=== PATIENT | male | born 1955 | race Asian ===

== ENCOUNTER 2018-06-12 19:52 | Emergency (ER) | payer OTHER, MEDICARE, MEDICAID ==
[~2018-06-12] VITALS: Ht 177.8 cm; Wt 65.9 kg
[~2018-06-12 19:52] MED LIST: BACI28.33 MM; DOCU-28 PO; FLO0.4C PO; HYDR-3973 PO
[2018-06-12] MEDS ORDERED: ketorolac trometh. 30mg/ml inj. IM ONE (20:50)
[2018-06-12 21:47] LABS: BASOPHILS % (AUTO) 0.3 % (0-1); EOSINOPHILS # (AUTO) 0.1 X10'3 (0-0.9); EOSINOPHILS % (AUTO) 0.8 % (0-6); HEMOGLOBIN 15.1 g/dl (14.0-17.9); LYMPHOCYTES # (AUTO) 1.4 X10'3 (1.1-4.8); LYMPHOCYTES % (AUTO) 19.4 % (21-51); MEAN CORPUSCULAR HEMOGLOBIN 29.9 PG (27.0-31.0); MEAN CORPUSCULAR HGB CONC 32.9 % (33.0-36.5); MEAN CORPUSCULAR VOLUME 90.8 FL (78-98); MEAN PLATELET VOLUME 7.6 FL (7.4-10.4); MONOCYTES # (AUTO) 0.4 X10'3 (0-0.9); NEUTROPHILS # (AUTO) 5.3 X10'3 (1.8-7.7); NEUTROPHILS % (AUTO) 73.5 % (42-75); PLATELET COUNT 235 X10'3 (140-440); RED BLOOD COUNT 5.07 X10'6 (4.70-6.10); RED CELL DISTRIBUTION WIDTH 13.5 % (11.5-14.5); WHITE BLOOD COUNT 7.2 X10'3 (4.5-11.0)
[2018-06-12 22:01] LABS: ALBUMIN 3.7 G/DL (3.4-5.0); ANION GAP 9 (8-16); BLOOD UREA NITROGEN 16 MG/DL (7-18); BUN/CREATININE RATIO 15.8 (5.4-32.0); CALCIUM 9.1 MG/DL (8.5-10.1); CHLORIDE 106 MMOL/L (99-107); CREATININE 1.01 MG/DL (0.60-1.10); GLUCOSE 102 MG/DL (70-104); SODIUM 141 MMOL/L (135-145); TOTAL CARBON DIOXIDE 26.5 MMOL/L (24-32); eGFR 75 ML/MIN
[2018-06-12] MEDS ORDERED: iohexol 300mg/ml 100ml inj. ONE (22:16)
[2018-06-12 23:55] VITALS: BP 100/62
== END 2018-06-12 23:57 | disposition home or self-care (01) ==
LOC: ER 19:53
DX: R07.89 Other chest pain (principal); G89.29 Other chronic pain; F17.200 Nicotine dependence, unspecified, uncomplicated; V89.2XXA Person injured in unspecified motor-vehicle accident, traffic, initial encounter; Y93.89 Activity, other specified; Y92.89 Other specified places as the place of occurrence of the external cause; Y99.8 Other external cause status
CPT/HCPCS: 36415; 71046; 71260; 80048; 85025; 96372; 99285; J1885; Q9967

== ENCOUNTER → 2021-01-28 | Emergency (ER) | payer MEDICARE, MEDICAID ==
[~2021-01-28] VITALS: Ht 172.7 cm; Wt 82.6 kg
[~2021-01-28] MED LIST changes: +ATOR40TA72 PO; -BACI28.33 MM; +CEPH-585 PO; +CLOP75TA34 PO; -DOCU-28 PO; -FLO0.4C PO; -HYDR-3973 PO; +HYDROcodone/acetaminophen 5mg/325mg tablet PO ONE; +LIDO20SO24 MM; +LORA10TA7 PO; +OMEP-50 PO; +cephalexin 250mg capsule PO ONE
[2021-01-28 18:17] VITALS: BP 143/73
[2021-01-28 22:50] LABS: BASOPHILS # (AUTO) 0.1 X10'3 (0-0.2); EOSINOPHILS # (AUTO) 0.1 X10'3 (0-0.9); EOSINOPHILS % (AUTO) 1.3 % (0-6); HEMOGLOBIN 8.2 g/dl (14.0-17.9); LYMPHOCYTES # (AUTO) 1.2 X10'3 (1.1-4.8); LYMPHOCYTES % (AUTO) 15.8 % (21-51); MEAN CORPUSCULAR HEMOGLOBIN 29.2 PG (27.0-31.0); MEAN CORPUSCULAR HGB CONC 32.8 g/dL (33.0-36.5); MEAN CORPUSCULAR VOLUME 88.9 FL (78-98); MEAN PLATELET VOLUME 6.9 FL (7.4-10.4); MONOCYTES # (AUTO) 0.6 X10'3 (0-0.9); MONOCYTES % (AUTO) 7.4 % (2-12); NEUTROPHILS # (AUTO) 5.8 X10'3 (1.8-7.7); NEUTROPHILS % (AUTO) 74.5 % (42-75); PLATELET COUNT 374 X10'3 (140-440); RED BLOOD COUNT 2.82 X10'6 (4.70-6.10); RED CELL DISTRIBUTION WIDTH 14.6 % (11.5-14.5); WHITE BLOOD COUNT 7.7 X10'3 (4.5-11.0)
[2021-01-28 22:58] LABS: CLARITY,URINE CLEAR (Clear); COLOR,URINE YELLOW (Yellow); GLUCOSE, URINE NEGATIVE (Neg); KETONES,URINE NEGATIVE (Neg); LEUKOCYTE ESTERASE ,URINE MODERATE (Neg); NITRITES, URINE POSITIVE (Neg); OCCULT BLOOD,URINE LARGE (Neg); PROTEIN,URINE 30 mg/dl (Neg); UROBILINOGEN,URINE 0.2 E.U/dL (0.2-1.0)
[2021-01-28 23:01] LABS: ALANINE AMINOTRANSFERASE 20 U/L (12-78); ALBUMIN 3.1 G/DL (3.4-5.0); ALBUMIN/GLOBULIN RATIO 0.8 (1.1-1.5); ALKALINE PHOSPHATASE 97 IU/L (46-116); ANION GAP 8 (8-16); ASPARTATE AMINO TRANSFERASE 15 U/L (10-37); BILIRUBIN,TOTAL 0.4 MG/DL (0.1-1.0); BLOOD UREA NITROGEN 8 MG/DL (7-18); BUN/CREATININE RATIO 8.4 (5.4-32.0); CALCIUM 8.4 MG/DL (8.5-10.1); CHLORIDE 107 MMOL/L (99-107); CREATININE 0.95 MG/DL (0.60-1.10); GLUCOSE 109 MG/DL (70-104); POTASSIUM 3.5 MMOL/L (3.5-5.1); SODIUM 142 MMOL/L (135-145); TOTAL CARBON DIOXIDE 26.7 MMOL/L (24-32); TOTAL PROTEIN 6.9 G/DL (6.4-8.2); eGFR 80 ML/MIN
[2021-01-28 23:26] LABS: UA COLLECTION TYPE FOLEY CATH
[2021-01-28 23:33] LABS: WBC,URINE 0-4 /HPF (0-4)
[2021-01-28 23:34] LABS: BACTERIA,URINE FEW /HPF (Neg); MUCUS STRANDS FEW /LPF (Neg); RBC,URINE 20-50 /HPF (0-2); SQUAMOUS EPITHELIAL CELL,UR NONE SEEN /LPF (FEW)
== END | disposition home or self-care (01) ==
LOC: ER 17:40
DX: T83.038A Leakage of other urinary catheter, initial encounter (principal); N39.0 Urinary tract infection, site not specified; R31.9 Hematuria, unspecified; G89.29 Other chronic pain; N40.0 Benign prostatic hyperplasia without lower urinary tract symptoms; Z98.890 Other specified postprocedural states; Z72.89 Other problems related to lifestyle; Z79.2 Long term (current) use of antibiotics; Z79.899 Other long term (current) drug therapy; Y82.8 Other medical devices associated with adverse incidents; Y72.1 Therapeutic (nonsurgical) and rehabilitative otorhinolaryngological devices associated with adverse incidents
CPT/HCPCS: 36415; 80053; 81001; 85025; 87077; 87088; 87186; 99283

== ENCOUNTER 2025-02-12 10:39 | Emergency (ER) | payer MEDICARE, MEDICAID ==
[~2025-02-12] VITALS: Ht 177.8 cm; Wt 80.0 kg
[~2025-02-12 10:39] MED LIST changes: -CEPH-585 PO; -HYDROcodone/acetaminophen 5mg/325mg tablet PO ONE; +LIDO15SO9 MM; -LIDO20SO24 MM; -OMEP-50 PO; +OMEP20CA16 PO; -cephalexin 250mg capsule PO ONE
[2025-02-12 10:53] VITALS: BP 125/55; PULSE 65; RESP 18; TEMP 98.1; O2SAT 97
--- NOTE | 2025-02-12 10:57 | Physician Documentation ---
History of Present Illness ~ Chief Complaint: Hip pain Stated Complaint: LOWER BACK PAIN Time Seen by MD: 10:57 OK to notify your PCP?: Yes Primary Medical Doctor: [facility] Source: patient Mode of Arrival: POV Exam Limitations: no limitations HPI 70-year-old male presents with right lower back pain which is radiating down into his right thigh. He states that this started about 2 weeks ago and has been getting progressively worse over the past 2-3 days. He denies any loss of bowel or bladder or saddle anesthesia. He is ambulatory but it is painful to walk. He did not have any fall or trauma which caused this. He does take [place] at home which has not been helping. Medication Reconciliation Allergies: Coded Allergies: No Known Allergies (Unverified , 02/12/25) Scheduled Atorvastatin Calcium (Atorvastatin Calcium), 1 TAB PO HS, (Reported) Clopidogrel Bisulfate (Clopidogrel), 1 TAB PO DAILY, (Reported) Loratadine (Loratadine), 1 TAB PO DAILY, (Reported) Omeprazole (Omeprazole), 1 CAP PO DAILY, (Reported) Tizanidine Hcl (Zanaflex), 1 CAP PO HS Scheduled PRN Lidocaine HCl (Lidocaine HCl Viscous), 5 ML MM ACHS PRN for mouth sores, (Reported) Past Medical History Past Medical History: BPH, Chronic Pain, Anxiety, Bipolar, Depression Past Surgical History: noncontributory, other Alcohol Use: Occasionally Drug Use: none Lives with: Family Lives In: Home Review of Systems All Other Systems at this time: Reviewed and Negative Physical Exam Physical Exam Vital Signs: RN Vital Signs have been reviewed: Yes Pulse Oximetry Reflects: adequate oxygenation Physical Exam General: Alert, no apparent distress. HEENT: PERRL, EOMI, no injection, moist mucous membranes. Neck: Full range of motion. Respiratory: Lungs clear, no respiratory distress. Chest: No accessory muscle use. Cardiovascular: Regular rate and rhythm, no murmurs. Gastrointestinal: Soft, nontender, nondistended. Bowels sounds present. Back: No midline tenderness. Tenderness along right lumbar muscles down into right hip and into right thigh. No decreased range of motion of left leg. Negative passive leg raise test. Extremities: Normal range of motion, no deformity. Good CSM, good pulses in the left leg. Neurologic: Oriented x4. Psychiatric: Normal mood and affect. Skin: Normal color, warm and dry. No edema, no ecchymosis. Progress Results/Orders Reviewed/noted all lab results: Yes Results/Orders Orders - BERTHA LARIOS Hip Unilateral 2 Views (02/12/25 11:56) Completed Orders - BERTHA LARIOS [employer] Naproxen Tablet (Naprosyn Tablet) (02/12/25 11:35) Hip Unilateral 2 Views (02/12/25 11:56) Tizanidine Tablet (Zanaflex Tablet) (02/12/25 11:59) Medications Received in ER Medications (Trade) Dose Ordered Sig/Vale Route PRN Reason Start Time Stop Time Status Last Admin Dose Admin (Naprosyn tablet) 500 mg ONCE ONCE PO 02/12/25 11:35 02/12/25 11:38 DC 02/12/25 11:50 500 MG (Zanaflex tablet) 4 mg ONCE STAT PO 02/12/25 11:59 02/12/25 12:01 DC 02/12/25 12:04 4 MG Vital Signs 02/12/25 10:53 Temp 98.1 Pulse 65 Resp 18 B/P (MAP) 125/55 Pulse Ox 97 EKG/XRAY/CT/US/VASC/MRI Bone/Soft Tissue X-Ray (Ext.) : Additional Comment Right hip and pelvis X ray interpreted by me shows: No acute joint dislocation, soft tissue swelling or acute fracture. Medical Decision Making Additional info obtained from: old records, family Findings 70-year-old male presents with low back pain on the right side which is radiating down into his right hip and into his right thigh. I did x-ray of his right hip and pelvis and there is no acute fracture. On exam he has a negative passive leg raise test he is tender to palpation of his right hip and right thigh. We gave him naproxen and tizanidine and he experienced some relief from his pain. He is requesting a prescription for the tizanidine for nighttime to help him sleep. We discussed that he should follow up with his primary care provider which he has an appointment in a couple of days already. We discussed that the extra maybe negative but he could be having arthritis or some other thing going on which may need a MRI for full investigation of his pain. He does not have any signs of saddle anesthesia or loss of bowel or bladder. Differential Diagnosis Cauda equina, hip fracture, pelvis fracture, arthritis, bursitis, sciatica, lumbar fracture. Departure Disposition: 01 HOME / SELF CARE / HOMELESS Impression: Primary Impression: Low back pain Additional Impression: Right hip pain Condition: Stable Discharge Instructions: Acute Back Pain, Adult Additional Instructions: Please follow up with her primary care provider as scheduled and return back here for any new or worsening symptoms. You can use Tylenol and/or ibuprofen for pain relief but since you are taking the [place] take care to not exceed 4000 mg of Tylenol within a 24 hour period. Please use ice or heat to the area as this can help to relax it. I have prescribed some muscle relaxer which you can take at nighttime to help. Your x-ray was negative for any acute fracture or dislocation of your right hip or pelvis but as discussed x-rays do not show much of the soft tissue so you may need further imaging such as an MRI to fully investigate that area. Referrals: NO PRIMARY CARE PROVIDER (PCP) Prescriptions Tizanidine Hcl (Zanaflex) 4 Mg Capsule 1 CAP PO HS for 10 Days, #10 CAP 0 Refills Prov: BERTHA LARIOS 02/12/25 Education Educated: Patient, Family Educated regarding: diagnosis, treatment, prognosis, need for follow up Additional Comment Medical Screen Exam This patient recieved a medical screening examination. After reviewing the individual's medical complaints with presenting symptoms and performing an appropriate physical examination, it was determined that no immediate life- threatening emergency medical condition is present. This individual is also not a women having contractions. Signature Scribe Signature: . Attestation: Scribed for Bertha Larios by Bertha Lazaro NP . 02/12/25 13:08 Parts of this note were created using [employer] voice recognition software program. While efforts were made to correct any mistakes made by this voice recognition software program, nonsensical phrases may remain in this note. In addition, there may be errors and syntax, grammar, content and spelling. BERTHA LARIOS Feb 12, 2025 10:57
--- NOTE | 2025-02-12 12:39 | RADIOLOGY REPORT ---
DI HIP UNILATERAL 2 VIEWS, INDICATION: right hip pain TECHNICAL DATA: Frontal and frog lateral views were obtained of the pelvis and right hip. COMPARISON: None FINDINGS: The right hip is normally located. The right hip joint is normally maintained with no marginal osteop hytes. No right hip fracture is identified. The sacroiliac joint appears normal. IMPRESSION: No acute right hip fracture or subluxation.
[2025-02-12] MEDS ORDERED: TIZA4CAP PO (13:03)
== END 2025-02-12 13:09 | disposition home or self-care (01) ==
LOC: ER 10:39
DX: M54.50 Low back pain, unspecified (principal); M25.551 Pain in right hip; F31.9 Bipolar disorder, unspecified; F41.9 Anxiety disorder, unspecified
CPT/HCPCS: 73502; 99283